=== PATIENT | female | born 1960 | race Caucasian/White ===

== ENCOUNTER 2016-07-16 02:31 | Emergency (ER) | payer OTHER ==
--- NOTE | 2016-07-16 02:50 | CPEKG ---
Heart Rate: 77 RR Interval: 779 P-R Interval: 140 QRSD Interval: 86 QT Interval: 420 QTC Interval: 476 P [place]: 60 QRS [place]: 39 T Wave [place]: 34 EKG Severity - ABNORMAL ECG - EKG Impression: SINUS RHYTHM EKG Impression: NONSPECIFIC T ABNORMALITIES, ANTERIOR LEADS Electronically Signed By: Umu Ferrara 16-Jul-2016 23:09:19
[2016-07-16 02:59] VITALS: RESP 18
[2016-07-16 03:38] LABS: % IMMATURE GRANULYOCYTES 0.2 % (0.0-1.1); ABSOLUTE IMMATURE GRANULOCYTES 0.02 10^3/uL (0.00-0.10); ADD DIFF? NO; ADD MORPH? NO; ADD SCAN? NO; ATYPICAL LYMPHOCYTE FLAG 10 (0-99); FRAGMENT RBC FLAG 0 (0-99); HEMATOCRIT 40.4 % (38.0-47.0); HEMOGLOBIN 14.2 g/dL (12.6-16.3); LEFT SHIFT FLG 0 (0-99); LIPEMIA HEMOLYSIS FLAG 90 (0-99); MEAN CELL HEMOGLOBIN 32.3 pg (27.9-34.1); MEAN CELL HEMOGLOBIN CONCENTR. 35.1 g/dL (32.4-36.7); MEAN CELL VOLUME 91.8 fL (81.5-99.8); PLATELET CLUMPS FLAG 60 (0-99); PLATELET COUNT 335 10^3/uL (150-400); RED CELL DISTRIBUTION WIDTH 12.9 % (11.5-15.2)
[2016-07-16 03:47] LABS: ANION GAP 19 mEq/L (8-16); CALCIUM 9.8 mg/dL (8.5-10.4); CARBON DIOXIDE 19 mEq/l (22-31); CHLORIDE 108 mEq/L (97-110); CREATININE 0.8 mg/dL (0.6-1.0); GLOMERULAR FILTRATION RATE > 60; GLUCOSE 83 mg/dL (70-100); SODIUM 146 mEq/L (134-144)
--- NOTE | 2016-07-16 03:50 | EDPHY ---
[id number] 4d 07/16/16 02:38 HPI/ROS: HPI The patient presents with epigastric pain which began at about 10:30 tonight before bed. She describes the pain as a pressure-like sensation without any radiation. She awoke at 12:30 p.m. and the pain was more severe. She then vomited about 15 minutes later, nonbloody nonbilious emesis. The pain is still present but is mild in nature. It is not associated with any shortness of breath, diaphoresis or dizziness. She has no prior history of similar pain. About 1 month ago she had a nerve stimulator placed at C1-C2 for chronic neck pain status post cervical spinal fusion. She says this is helping her pain significantly. She is still on multiple pain medications. REVIEW OF SYSTEMS Constitutional: No fever, no chills. Eyes: No discharge. ENT: No sore throat. Cardiovascular: +chest pain, no palpitations. Respiratory: No cough, no shortness of breath. Gastrointestinal: No abdominal pain, no vomiting. Genitourinary: No hematuria. Musculoskeletal: No back pain. Skin: No rashes. Neurological: No headache. Family history: Multiple family members with CAD PHYSICAL General Appearance: Alert, no distress Eyes: Pupils equal and round no pallor or injection ENT, Mouth: Mucous membranes moist Respiratory: There are no retractions, lungs are clear to auscultation Cardiovascular: Regular rate and rhythm Gastrointestinal: Mild epigastric tenderness, no masses, bowel sounds normal Neurological: A&O, moves all extremities Skin: Warm and dry, no rashes Musculoskeletal: Neck is supple non tender Extremities: symmetrical, full range of motion Psychiatric: Patient is oriented X 3, there is no agitation Source: Patient Exam Limitations: No limitations - Personal History LMP (Females 10-55): Hysterectomy Current Tetanus/Diphtheria Vaccine: Yes Current Tetanus Diphtheria and Acellular Pertussis (TDAP): Yes - Medical/Surgical History Hx Asthma: Yes Hx Chronic Respiratory Disease: No Hx Diabetes: No Hx Cardiac Disease: No Hx Renal Disease: No Hx Cirrhosis: No Hx Alcoholism: No Hx HIV/AIDS: No Hx Splenectomy or Spleen Trauma: No Other PMH: MULT NECK SURGERYS WITH NERVE STIM PLACED 06/17,. L KNEE SURGERY, HERNIA,SHOULDER,SINUS SURG/ - Social History Smoking Status: Never smoked Constitutional: Initial Vital Signs Temperature (C) 36.5 C 07/16/16 02:31 Heart Rate 79 07/16/16 02:31 Respiratory Rate 18 07/16/16 02:31 Blood Pressure 132/78 H 07/16/16 02:31 O2 Sat (%) 99 07/16/16 02:31 O2 Delivery Mode Nasal Cannula O2 (L/minute) 2 Allergies/Adverse Reactions: cephalexin monohydrate [From Keflex] Allergy (Verified 07/16/16 02:59) NSAIDS (Non-Steroidal Anti-Inflamma Allergy (Verified 07/16/16 02:59) Home Medications: Medication Instructions Recorded Albuterol Hfa Anes Only [Proair 2 puffs IH QID 07/16/16 Hfa Icu (*)] Cyclobenzaprine [Flexeril 10 MG 10 mg PO TID 07/16/16 (*)] Gabapentin [Neurontin 400 MG (*)] 1,200 mg PO 07/16/16 Linaclotide [Linzess] 145 mcg PO 07/16/16 Montelukast Sodium [Singulair] 07/16/16 Omeprazole [Prilosec 20 mg] 20 mg PO DAILY 07/16/16 morphINE IR 30 mg (*) 30 mg PO TID 07/16/16 Medical Decision Making - Diagnostics EKG Interpretation: EKG: Complete interpretation has been separately recorded in the [employer] archive. Summary impression: T-wave inversions in V1 through V 4, no old for comparison Imaging: CT chest angio: No evidence of PE or acute aortic abnl. Hiatal hernia with wall thickening; suggest endoscopic correlation given her retrosternal and epigastric pain. Cervical arthrodesis hardware with battery pack/TENS. this was discussed with Dr. Menendez of Radiology. ED Course/Re-evaluation: 5:00 a.m.- The patient had ongoing pain while in the emergency room, she was given Zofran and GI cocktail. 5:30 a.m.- CT scan revealed the hiatal hernia with wall thickening, I feel this is likely the cause of the patient's symptoms given her epigastric pain and vomiting. She improved with a GI cocktail. She is already on Nexium for GERD and have instructed her to continue this, monitor her diet to avoid spicy, greasy, acidic foods. I have encouraged her to use antacids as needed if the pain recurs. I have given her information for follow up with GI. While she does have T-wave inversions in her EKG, I do not have an old for comparison. I do not feel that her chest pain is related to cardiac ischemia. She can follow up as an outpatient for this. Differential Diagnosis: This is a 55-year-old female with recent nerve stimulator placed in her cervical spinal region who presents brought in by ambulance for epigastric and chest pain which is moderate in severity and associated with vomiting. Differential diagnosis includes ACS, PE, GERD. - Data Points Laboratory Results: Laboratory Results 07/16/16 02:30 07/16/16 02:30 07/16/16 02:30 WBC 8.07 10^3/uL (3.80-9.50) RBC 4.40 10^6/uL (4.18-5.33) Hgb 14.2 g/dL (12.6-16.3) Hct 40.4 % (38.0-47.0) MCV 91.8 fL (81.5-99.8) MCH 32.3 pg (27.9-34.1) MCHC 35.1 g/dL (32.4-36.7) RDW 12.9 % (11.5-15.2) Plt Count 335 10^3/uL (150-400) MPV 9.0 fL (8.7-11.7) Neut % (Auto) 66.2 % (39.3-74.2) Lymph % (Auto) 25.5 % (15.0-45.0) [place] % (Auto) 6.8 % (4.5-13.0) Eos % (Auto) 1.1 % (0.6-7.6) Baso % (Auto) 0.2 L % (0.3-1.7) Nucleat RBC Rel Count 0.0 % (0.0-0.2) Absolute Neuts (auto) 5.33 10^3/uL (1.70-6.50) Absolute Lymphs (auto) 2.06 10^3/uL (1.00-3.00) Absolute Monos (auto) 0.55 10^3/uL (0.30-0.80) Absolute Eos (auto) 0.09 10^3/uL (0.03-0.40) Absolute Basos (auto) 0.02 10^3/uL (0.02-0.10) Absolute Nucleated RBC 0.00 10^3/uL (0-0.01) Immature Gran % 0.2 % (0.0-1.1) Immature Gran # 0.02 10^3/uL (0.00-0.10) D-Dimer 0.81 H ug/mLFEU (0.00-0.50) Sodium 146 H mEq/L (134-144) Potassium 4.0 mEq/L (3.5-5.2) Chloride 108 mEq/L (97-110) Carbon Dioxide 19 L mEq/l (22-31) Anion Gap 19 mEq/L (8-16) BUN 9 mg/dL (7-23) Creatinine 0.8 mg/dL (0.6-1.0) Estimated GFR > 60 Glucose 83 mg/dL (70-100) Calcium 9.8 mg/dL (8.5-10.4) Troponin I < 0.012 ng/mL (0-0.034) Medications Given: Discontinued Medications Miscellaneous Medication (Gi Cocktail(No Lido)) 45 ml PO EDNOW ONE Stop: 07/16/16 05:22 Last Admin: 07/16/16 05:24 Dose: 45 ml Ondansetron HCl (Zofran) 4 mg IVP EDNOW ONE Stop: 07/16/16 04:31 Last Admin: 07/16/16 04:38 Dose: 4 mg Departure - Departure Disposition: Home, Routine, Self-Care Clinical Impression: Chest pain, Hiatal hernia Condition: Good Instructions: Hiatal Hernia (ED) Additional Instructions: Your CT scan today showed no pulmonary embolism, however did show a hiatal hernia which is likely the cause of your symptoms. You should continue your omeprazole for this and avoid any spicy or greasy foods. I have given you the information for chemical radiation technician in you can call him for a follow-up appointment if your pain continues. Referrals: Rishabh Pham MD [Medical Doctor] - As per Instructions
[2016-07-16 03:59] LABS: TROPONIN I < 0.012 ng/mL (0-0.034)
[2016-07-16] MEDS ORDERED: ONDANSETRON 4 MG/2 ML VIAL ONE (04:26)
[2016-07-16] MEDS ORDERED: ONDANSETRON 4 MG/2 ML VIAL IVP ONE (04:30)
[2016-07-16] MEDS ORDERED: IOPAMIDOL (ISOVUE 370) 75 ML BTL IV ONE (04:35)
[2016-07-16 04:37] VITALS: BP 149/89; O2SAT 100
[2016-07-16] MEDS ORDERED: MAALOX/LIDO/HYOSC GI COCKTAIL 55 ML BOTTLE ONE (05:13)
[2016-07-16] MEDS ORDERED: MAALOX/HYOSC GI COCKTAIL 45 ML BOTTLE PO ONE (05:21)
[2016-07-16 05:47] VITALS: PULSE 76; TEMP 98.2
--- NOTE | 2016-07-16 08:54 | CT ---
Contrast-Enhanced CT Scan of the Chest (CT Pulmonary Artery Angiography) Clinical History: 55-year-old female presenting to the ED complaining of epigastric and retrosternal chest pain, and noted to have a mildly elevated D- dimer of 0.81. Rule out PE. Technique: A test bolus was used. The patient received 90 mL of IV Isovue-[id number] without complication, and a multidetector helical CT scan was obtained from the base of the neck inferiorly to the upper abdomen, with images reformatted at 1.50 and overlapping 4/3 mm increments, and reviewed at a variety of window and level settings. Multiplanar reconstructions are reviewed on the workstation. DFOV: 36 cm. Dose reduction protocol was used. Comparison Study: Chest radiography from earlier this morning at 3:45 a.m. Findings: CT Angiography: The main pulmonary artery, the main right and the main left pulmonary arteries, and the first, second, and third order pulmonary artery segments are contrast-opacified, with no CT evidence of a filling defect to suggest acute or chronic thromboemboli. There is no interventricular septal bowing. There is no reflux of contrast into the intrahepatic IVC. There is no pericardial effusion. The thoracic aortic contour is normal, with no aneurysm or dissection. There is a normal anatomic arrangement of the great vessels off of the aortic arch. The visualized upper abdominal aorta is normal in size. The cardiac chambers are normal in size. Contrast-Enhanced CT Scan of the Chest: There is a moderate-sized hiatal hernia with some associated wall thickening at the gastroesophageal junction. Given the patient's retrosternal and epigastric pain, it may be worthwhile to consider endoscopy for further evaluation to exclude a Romero's abnormality. There is no focal infiltrate, atelectasis, pleural effusion, peripheral interstitial edema, or pneumothorax. There are a couple of calcifications near the azygous lymph node station, and a 3 mm calcified granuloma in the left lower lobe (axial series 6, image 139), and there is a non calcified 3 mm nodule in the right upper lobe on series 6, image 86. In this low risk patient who has never smoked, no further follow up is warranted, according to Fleischner Society guidelines. The osseous structures are notable for some cervical arthrodesis hardware and a TENS unit with a battery back projected over the anterior right chest wall with some resultant beam-hardening artifact. There are degenerative changes associated with the thoracic spine, with ventral traction spurs and Schmorl nodes at multiple levels. Minor ventral concavities are seen at several levels. The subcutaneous tissues are unremarkable. The visualized upper abdomen is otherwise unremarkable, given the arterial phase of contrast enhancement. I provided a preliminary report to Dr. Kay Antoine at 5:05 a.m. on Monday, July 16, 2016, regarding the above findings. My final interpretation is concordant with my initial impression. Impression: 1. There is no CT evidence of pulmonary artery thromboemboli, or acute aortic abnormality. 2. Moderate-sized hiatal hernia with wall thickening. Suggest endoscopic correlation, given the patient's symptoms. 3. Cervical arthrodesis hardware. 4. Sequelae of old granulomatous disease. POS99 MTDD
--- NOTE | 2016-07-16 09:06 | DX ---
PA and Lateral Chest July 16, 2016 History: Chest pain. Findings: The heart and mediastinum are normal. Pulmonary vascularity is normal. The lungs are clear. There is no pleural fluid. A pneumothorax is not identified. Postoperative changes are noted in the spine at the cervicothoracic junction. Impression: No significant radiographic abnormality. Specifically, a source for chest pain is not gadiel ntified.
== END 2016-07-16 05:46 | disposition home or self-care (01) ==
DX: K44.9 Diaphragmatic hernia without obstruction or gangrene (principal); J45.909 Unspecified asthma, uncomplicated
CPT/HCPCS: 71020; 71275; 93005; 96374; 99285; J2405